=== PATIENT | male | born 1985 | race Hispanic/Latino ===

== ENCOUNTER 2022-08-02 00:57 | Emergency (ER) | payer OTHER ==
[~2022-08-02] VITALS: Ht 180.3 cm; Wt 99.8 kg
[2022-08-02 01:22] LABS: BASOPHILS % (AUTO) 0.5 % (0.0-5.0); HEMATOCRIT 49.1 % (42-54); LYMPHOCYTES % (AUTO) 38.7 % (21.0-51.0); MEAN CORPUSCULAR HEMOGLOBIN 27.9 pg (27.0-33.0); MEAN CORPUSCULAR HGB CONC 33.4 g/dL (32.0-36.0); MEAN CORPUSCULAR VOLUME 83.6 fL (79-99); MONOCYTES % (AUTO) 8.6 % (3.0-13.0); NEUTROPHILS % (AUTO) 50.8 % (40.0-77.0); PLATELET COUNT (AUTO) 168 K/uL (130-400); RED BLOOD CELL COUNT(AUTO) 5.87 MIL/uL (4.50-6.20); RED CELL DISTRIBUTION WIDTH 12.9 % (11.0-15.5)
[2022-08-02 01:23] LABS: APPEARANCE,URINE CLEAR (CLEAR); BILIRUBIN,URINE NEGATIVE (NEGATIVE); COLOR,URINE LIGHT-YELLOW (YELLOW); GLUCOSE, URINE (UA) NEGATIVE (NEGATIVE); KETONES,URINE NEGATIVE (NEGATIVE); LEUKOCYTE ESTERASE ,URINE NEGATIVE Leu/uL (NEGATIVE); NITRATE,URINE NEGATIVE (NEGATIVE); OCCULT BLOOD,URINE NEGATIVE (NEGATIVE); PROTEIN,URINE NEGATIVE (NEGATIVE); UROBILINOGEN,URINE 0.2 mg/dL (0.2-1.0)
[2022-08-02] MEDS ORDERED: HYDROMORPHONE 0.5 MG SYG (0.5MG/0.5ML) IVP ONE (01:30)
[2022-08-02] MEDS ORDERED: ONDANSETRON 4MG INJ IVP ONE (01:30)
[2022-08-02] MEDS ORDERED: 0.9%NACL 1000ML 2,000 ML IV ONE (01:30)
[2022-08-02 01:35] LABS: INR 0.94 (0.85-1.15); PROTHROMBIN TIME 10.3 SEC (9.6-11.6)
[2022-08-02 01:37] LABS: PARTIAL THROMBOPLASTIN TIME 21.9 SEC (26.3-35.5)
[2022-08-02 01:48] LABS: CREATININE 1.6 mg/dL (0.5-1.5); POTASSIUM 3.3 mmol/L (3.5-5.1)
[2022-08-02 01:53] LABS: ALBUMIN 4.2 g/dL (3.5-5.0); TOTAL PROTEIN, SERUM 7.6 g/dL (6.0-8.3)
[2022-08-02] MEDS ORDERED: IOHEXOL 350 MG/ML 100ML INFUS..BTL IV ONE (01:56)
[2022-08-02] MEDS ORDERED: 0.9%NACL 1000ML 1,000 ML IV ONE (02:30)
[2022-08-02] MEDS ORDERED: ZOSYN 3.375GM +NS 50ML IV ONE (02:30)
[2022-08-02] MEDS ORDERED: IBUP-1493 PO (03:41)
[2022-08-02 03:57] VITALS: BP 125/79
== END 2022-08-02 04:26 | disposition home or self-care (01) ==
LOC: EDH 00:57
DX: K80.50 Calculus of bile duct without cholangitis or cholecystitis without obstruction (principal)
CPT/HCPCS: 99285; 74177; 96365; 76705; 96375; 96361; 80053; 83690; 85025; 85610; 85730; 83605; 81003; 36415; J7030; J2405; J2543; J1170; Q9967

== ENCOUNTER 2023-07-21 10:30 | Emergency (ER) | payer BC ==
[~2023-07-21] VITALS: Ht 180.3 cm; Wt 99.8 kg
[~2023-07-21 10:30] MED LIST: IBUP-1493 PO
[2023-07-21 10:44] VITALS: BP 180/103; PULSE 80; RESP 16; O2SAT 98
[2023-07-21] MEDS ORDERED: 0.9%NACL 1000ML 1,000 ML IV ONE (11:30)
[2023-07-21 11:44] LABS: BASOPHILS # (AUTO) 0.03 K/uL (0.00-0.20); BASOPHILS % (AUTO) 0.4 % (0.0-5.0); CREATININE 1.2 mg/dL (0.5-1.5); EOSINOPHILS # (AUTO) 0.05 K/uL (0.00-0.70); EOSINOPHILS % (AUTO) 0.7 % (0.0-8.0); HEMATOCRIT 48.1 % (42-54); IMMATURE GRANULOCYTE ABSOLUTE 0.02 K/uL (0-1); LYMPHOCYTES # (AUTO) 2.4 K/uL (1.0-4.8); LYMPHOCYTES % (AUTO) 31.7 % (21.0-51.0); MEAN CORPUSCULAR HEMOGLOBIN 28.5 pg (27.0-33.0); MEAN CORPUSCULAR HGB CONC 33.5 g/dL (32.0-36.0); MEAN CORPUSCULAR VOLUME 85.1 fL (79-99); MONOCYTES # (AUTO) 0.6 K/uL (0.1-1.0); MONOCYTES % (AUTO) 8.4 % (3.0-13.0); NEUTROPHILS # (AUTO) 4.4 K/uL (1.8-7.7); NEUTROPHILS % (AUTO) 58.5 % (40.0-77.0); PLATELET COUNT (AUTO) 156 K/uL (130-400); POTASSIUM 3.8 mmol/L (3.5-5.1); RED BLOOD CELL COUNT(AUTO) 5.65 MIL/uL (4.50-6.20); RED CELL DISTRIBUTION WIDTH 12.3 % (11.0-15.5); WHITE BLOOD COUNT (AUTO) 7.5 K/uL (4.8-10.8)
[2023-07-21 11:49] LABS: ALBUMIN 4.1 g/dL (3.5-5.0); BILIRUBIN,TOTAL 0.4 mg/dL (0.2-1.0); TOTAL PROTEIN, SERUM 7.3 g/dL (6.0-8.3)
== END 2023-07-21 13:10 | disposition home or self-care (01) ==
LOC: EDH 10:30
DX: E86.0 Dehydration (principal)
CPT/HCPCS: 36415; 80053; 82550; 84484; 85025; 93005

== ENCOUNTER 2023-08-25 01:49 | Emergency (ER) | payer BC ==
[~2023-08-25] VITALS: Ht 180.3 cm; Wt 103.0 kg
[2023-08-25 01:51] VITALS: BP 148/88; PULSE 70; RESP 18
[2023-08-25] MEDS ORDERED: HYDROXYZINE 25 MG TABLET ONE (03:47)
== END 2023-08-25 13:15 | disposition home or self-care (01) ==
LOC: EDH 01:49
DX: F41.9 Anxiety disorder, unspecified (principal); E86.0 Dehydration
CPT/HCPCS: 93005

== ENCOUNTER → 2023-11-01 | Outpatient (CLI) | payer OTHER | END | disposition home or self-care (01) | LOC: SHCH 14:38 | PROVIDERS: ATTEND Internal Medicine | DX: I10 Essential (primary) hypertension (principal) | CPT/HCPCS: 93306 ==

== ENCOUNTER → 2024-02-01 | Outpatient (CLI) | payer OTHER ==
[2024-02-01 22:08] VITALS: PULSE 66; RESP 14
[2024-02-01 22:33] VITALS: PULSE 57; RESP 12
[2024-02-01 23:08] VITALS: PULSE 60; RESP 14
[2024-02-01 23:33] VITALS: PULSE 55; RESP 16
[2024-02-02] VITALS (11 sets, daily range): PULSE 44–55; RESP 10–14
== END ==
LOC: SLP 20:46
PROVIDERS: ATTEND Internal Medicine
DX: G47.33 Obstructive sleep apnea (adult) (pediatric) (principal)
CPT/HCPCS: 95810

== ENCOUNTER → 2024-02-10 | Outpatient (CLI) | payer OTHER ==
[2024-02-10 22:47] VITALS: PULSE 54; RESP 14
[2024-02-10 23:30] VITALS: PULSE 52; RESP 12
[2024-02-11] VITALS (11 sets, daily range): PULSE 52–62; RESP 2–18
== END | disposition home or self-care (01) ==
LOC: SLP 20:45
PROVIDERS: ATTEND Internal Medicine
DX: G47.33 Obstructive sleep apnea (adult) (pediatric) (principal)
CPT/HCPCS: 95811